=== PATIENT | male | born 1990 | race Caucasian/White ===

== ENCOUNTER 2023-06-26 06:28 | Day surgery (SDC) | payer OTHER, MEDICARE, MEDICAID ==
[~2023-06-26] VITALS: Ht 188 cm; Wt 122.7 kg
[2023-06-26] MEDS ORDERED: LIDOCAINE/PF 2% 5 ML VIAL IM ONE (06:29)
[2023-06-26] MEDS ORDERED: DEXAMETHASONE SOD PHOS 4 MG/ML VIAL IVP ONE (06:29)
[2023-06-26] MEDS ORDERED: ROCURONIUM BROMIDE 10 MG/ML 5 ML VIAL IVP ONE (06:29)
[2023-06-26] MEDS ORDERED: SUGAMMADEX SODIUM 200 MG/2 ML VIAL IVP ONE (06:29)
[2023-06-26] MEDS ORDERED: METOPROLOL TARTRATE 5 MG/5 ML VIAL IVP ONE (06:29)
[2023-06-26] MEDS ORDERED: ONDANSETRON HCL 4 MG/2 ML VIAL IVP ONE (06:29)
[2023-06-26] MEDS ORDERED: KETAMINE HCL 50 MG/ML 10 ML VIAL IVP ONE (06:29)
[2023-06-26] MEDS ORDERED: PROPOFOL 1% 20 ML VIAL IVP ONE (06:29)
[2023-06-26] MEDS ORDERED: RINGERS SOLUTION,LACTATED 1,000 ML IV ONE (07:14)
[2023-06-26] MEDS ORDERED: AMPICILLIN SODIUM 2 GM/NS 100 ML IV ONE (07:48)
[2023-06-26] MEDS ORDERED: CALC-878 PO (07:48)
[2023-06-26] MEDS ORDERED: ARIP20TA21 PO (07:48)
[2023-06-26] MEDS ORDERED: GUAN1TAB2 PO (07:48)
[2023-06-26] MEDS ORDERED: ASCO500T20 PO (07:48)
[2023-06-26] MEDS ORDERED: DESM0.1T6 PO (07:48)
[2023-06-26] MEDS ORDERED: OXCA300T28 PO (07:48)
[2023-06-26] MEDS ORDERED: TRAZ150T80 PO (07:48)
[2023-06-26] MEDS ORDERED: BUSP15 PO (07:48)
[2023-06-26] MEDS ORDERED: CHLO100T36 PO (07:48)
[2023-06-26 08:31] LABS: BASOPHILS % (AUTO) 0.5 % (0.0-2.0); EOSINOPHILS % (AUTO) 2.1 % (1.0-6.0); HEMATOCRIT 44.4 % (41-53); HEMOGLOBIN 14.6 g/dL (13.5-17.5); LYMPHOCYTES # (AUTO) 1.4 K/uL (1.0-4.8); LYMPHOCYTES % (AUTO) 25.3 % (22.0-44.0); MEAN CORPUSCULAR HEMOGLOBIN 27.8 pg (26.0-34.0); MEAN CORPUSCULAR HGB CONC 32.9 G/dL (31.0-37.0); MEAN CORPUSCULAR VOLUME 84 fL (80-100); MONOCYTES # (AUTO) 0.3 K/uL (0.1-1.0); MONOCYTES % (AUTO) 5.5 % (2.0-9.0); NEUTROPHILS # (AUTO) 3.8 K/uL (1.8-7.7); NEUTROPHILS % (AUTO) 66.6 % (40.0-70.0); PLATELET COUNT (AUTO) 240 K/uL (150-450); RED BLOOD CELL COUNT(AUTO) 5.26 MIL/uL (4.50-5.90); RED CELL DISTRIBUTION WIDTH 13.2 % (11.5-14.5); WHITE BLOOD COUNT (AUTO) 5.6 K/uL (4.5-11.0)
[2023-06-26] MEDS: RINGERS SOLUTION,LACTATED 1,000 ML IV ONE (08:32)
[2023-06-26 08:41] LABS: ANION GAP 8 mmol/L (8-16); CALCIUM, TOTAL 9.5 mg/dL (8.8-10.5); CARBON DIOXIDE 27 mmol/L (22-29); CHLORIDE 103 mmol/L (98-107); CREATININE 0.93 mg/dL (0.60-1.30); GLOMERULAR FILTR. RATE CALC > 60 mL/min (>60); GLUCOSE,RANDOM 97 mg/dL (70-110); POTASSIUM 3.9 mmol/L (3.5-5.1); SODIUM SERUM 138 mmol/L (136-145); UREA NITROGEN, BLOOD 11 mg/dL (7-18)
[2023-06-26 08:47] LABS: ALANINE AMINOTRANSFERASE 27 U/L (12-78); ALBUMIN 4.2 g/dL (3.4-5.0); ALKALINE PHOSPHATASE 96 U/L (46-116); ASPARTATE AMINOTRANSFERASE 25 U/L (15-37); BILIRUBIN,TOTAL 0.4 mg/dL (0.1-1.0)
[2023-06-26 08:50] LABS: PROTHROMBIN TIME 10.8 SEC (9.4-11.6)
== END 2023-06-26 10:30 | disposition home or self-care (01) ==
LOC: SURGERY 06:28
PROVIDERS: ATTEND Dentist General Practice
DX: K05.10 Chronic gingivitis, plaque induced (principal); K02.9 Dental caries, unspecified; I10 Essential (primary) hypertension; F84.0 Autistic disorder; G40.909 Epilepsy, unspecified, not intractable, without status epilepticus; Z79.01 Long term (current) use of anticoagulants; Z79.899 Other long term (current) drug therapy; F41.9 Anxiety disorder, unspecified; Z98.890 Other specified postprocedural states
CPT/HCPCS: 41899; 71045; 80053; 85025; 85610; 85730; 36415; 93005; J0290; J2704; J1100; J3490 ×4; J2405; Q9967; J7120

== ENCOUNTER 2025-03-31 06:14 | Day surgery (SDC) | payer OTHER, MEDICARE ==
[~2025-03-31] VITALS: Ht 188 cm; Wt 104.2 kg
[~2025-03-31 06:14] MED LIST: ARIP20TA63 PO; ASCO500T20 PO; BUSP15 PO; CALC-1058 PO; CHLO100T36 PO; DESM0.1T6 PO; GUAN1TAB2 PO; OXCA300T28 PO; TRAZ150T80 PO
[2025-03-31] MEDS ORDERED: AMPICILLIN SODIUM 2 GM/NS 100 ML IV ONE (07:18)
[2025-03-31] MEDS ORDERED: LOPE-232 PO (07:24)
[2025-03-31] MEDS ORDERED: LORA10TA7 PO (07:28)
[2025-03-31] MEDS ORDERED: LORA1TAB25 PO (07:28)
[2025-03-31] MEDS ORDERED: ZINC56.713 TP (07:28)
[2025-03-31] MEDS ORDERED: RINGERS SOLUTION,LACTATED 1,000 ML IV ONE (07:59)
[2025-03-31] MEDS: RINGERS SOLUTION,LACTATED 1,000 ML IV ONE (08:38)
[2025-03-31 08:43] LABS: CALCIUM, TOTAL 8.0 mg/dL (8.8-10.5); CREATININE 0.57 mg/dL (0.60-1.30); GLOMERULAR FILTR. RATE CALC > 60 mL/min (>60); GLUCOSE,RANDOM 80 mg/dL (70-110); SODIUM SERUM 141 mmol/L (136-145); UREA NITROGEN, BLOOD 8 mg/dL (7-18)
[2025-03-31 08:45] LABS: PLATELET COUNT (AUTO) 257 K/uL (150-450); RED BLOOD CELL COUNT(AUTO) 5.21 MIL/uL (4.50-5.90); RED CELL DISTRIBUTION WIDTH 13.7 % (11.5-14.5); WHITE BLOOD COUNT (AUTO) 5.0 K/uL (4.5-11.0)
[2025-03-31] MEDS ORDERED: KETAMINE HCL 50 MG/ML 10 ML VIAL ONE (08:56)
[2025-03-31 08:58] LABS: ASPARTATE AMINOTRANSFERASE 17 U/L (15-37); TOTAL PROTEIN, SERUM 5.6 g/dL (6.4-8.2)
[2025-03-31] MEDS ORDERED: SUGAMMADEX SODIUM 200 MG/2 ML VIAL IVP ONE (09:18)
[2025-03-31] MEDS ORDERED: ONDANSETRON HCL 4 MG/2 ML VIAL ONE (09:18)
[2025-03-31] MEDS ORDERED: DEXAMETHASONE SOD PHOS 4 MG/ML VIAL ONE (09:18)
[2025-03-31] MEDS ORDERED: PROPOFOL 1% 20 ML VIAL IVP ONE (09:18)
[2025-03-31] MEDS ORDERED: LIDOCAINE/PF 2% 5 ML SYRINGE IVP ONE (09:18)
[2025-03-31] MEDS ORDERED: ROCURONIUM BROMIDE 10 MG/ML 5 ML VIAL ONE (09:18)
== END 2025-03-31 11:35 | disposition home or self-care (01) ==
LOC: SURGERY 06:14
PROVIDERS: ATTEND Dentist General Practice
DX: K05.30 Chronic periodontitis, unspecified (principal); K02.9 Dental caries, unspecified; E66.9 Obesity, unspecified; F41.9 Anxiety disorder, unspecified; G40.909 Epilepsy, unspecified, not intractable, without status epilepticus; I10 Essential (primary) hypertension; R94.31 Abnormal electrocardiogram [ECG] [EKG]
CPT/HCPCS: 41899; 71045; 80053; 85025; 85610; 85730; 36415; 93005; J0290; J2704; J1100; J3490 ×4; J2405; J7120